=== PATIENT | male | born 1940 | race Caucasian/White ===

== ENCOUNTER 2019-04-16 16:57 | Emergency (ER) | payer MEDICARE, BC ==
[2019-04-16 17:44] VITALS: BP 143/67; PULSE 95
[2019-04-16] MEDS ORDERED: Sodium Chloride 0.9% 10 ML Syringe FLUSH PRN (17:47)
--- NOTE | 2019-04-16 17:52 | EDM.PDOC ---
ED HPI GENERAL MEDICAL PROBLEM - General Chief Complaint: General Stated Complaint: PASSED OUT EARLIER, TIRED CURRENTLY Time Seen by Provider: 04/16/19 17:35 Source of Information: Reports: Patient History Limitations: Reports: No Limitations - History of Present Illness INITIAL COMMENTS - FREE TEXT/NARRATIVE: was at breakfast with his brother this morning when he "passed out", or he "hunched over". According to brother, was only for a minute or so. He then had another episode that was, to a "lesser degree". Benoit states he just got overheated. He remembers feeling a warm feeling; states he remembers everything that happened; He has had a mild cough; more tired. He is currently tired; he denies chest pain, sob, nausea or vomiting; just tired ; chronic diarrhea; on metformin. Blood sugars are running in the 240's. per patient. Onset: Today - Related Data Allergies Allergy/AdvReac Type Severity Reaction Status Date / Time No Known Allergies Allergy Verified 04/16/19 17:30 Home Meds: Home Meds Aspirin [Halfprin] 81 mg PO DAILY 05/26/16 [History] Doxazosin Mesylate [Cardura] 1 tab PO BEDTIME 05/26/16 [History] Esomeprazole [NexIUM] 20 mg PO DAILY 05/26/16 [History] Insuln Asp Prot/Insulin Aspart [NovoLOG Mix 70-30] 26 units SUBCUT BID 05/26/16 [History] Liraglutide [Victoza] 6 units SUBCUT BID 05/26/16 [History] Montelukast [Singulair] 1 tab PO DAILY 05/26/16 [History] metFORMIN [Glucophage] 1,000 mg PO BID 05/26/16 [History] Doxycycline [Vibramycin] 100 mg PO BID 10 Days #20 cap 04/16/19 [Rx] Past Medical History HEENT History: Reports: Impaired Vision Cardiovascular History: Reports: High Cholesterol, Hypertension, SOB on Exertion Respiratory History: Reports: Other (See Below) Other Respiratory History: nodules found on lungs Gastrointestinal History: Reports: None Musculoskeletal History: Reports: Fracture Endocrine/Metabolic History: Reports: Diabetes, Type II, IDDM - Infectious Disease History Infectious Disease History: Reports: Other (See Below) Other Infectious Disease History: patient unaware - Past Surgical History Head Surgeries/Procedures: Reports: None HEENT Surgical History: Reports: None Cardiovascular Surgical History: Reports: None Respiratory Surgical History: Reports: None GI Surgical History: Reports: Appendectomy, Hernia Repair/Other Endocrine Surgical History: Reports: None Musculoskeletal Surgical History: Reports: None Social & Family History - Tobacco Use Smoking Status *Q: Former Smoker Years of Tobacco use: 40 Packs/Tins Daily: 4 Used Tobacco, but Quit: Yes Month/Year Tobacco Last Used: 1998 - Recreational Drug Use Recreational Drug Use: No ED ROS GENERAL - Review of Systems Review Of Systems: See Below Constitutional: Reports: Weakness, Fatigue, Diaphoresis Respiratory: Reports: No Symptoms Cardiovascular: Reports: No Symptoms Endocrine: Reports: No Symptoms GI/Abdominal: Reports: Diarrhea : Reports: No Symptoms Musculoskeletal: Reports: No Symptoms Skin: Reports: No Symptoms Neurological: Reports: Confusion, Syncope (near), Weakness Psychiatric: Reports: Agitation ED EXAM, GENERAL - Physical Exam Exam: See Below Exam Limited By: No Limitations General Appearance: Alert, WD/WN, No Apparent Distress Throat/Mouth: Normal Inspection Head: Atraumatic, Normocephalic Neck: Normal Inspection, Supple, Non-Tender, Full Range of Motion Respiratory/Chest: No Respiratory Distress, No Accessory Muscle Use, Chest Non- Tender, Decreased Breath Sounds Cardiovascular: Regular Rate, Rhythm (NSR to slightly tachy), Other ( pansystolic ejection murmur) GI/Abdominal: Normal Bowel Sounds, Soft, Non-Tender Extremities: Normal Inspection, Normal Range of Motion, Non-Tender Neurological: Alert, Oriented, CN II-XII Intact Psychiatric: Normal Affect, Normal Mood Skin Exam: Warm, Dry, Intact, Normal Color EKG INTERPRETATION EKG Date: 04/16/19 Time: 17:16 Rhythm: NSR Rate (Beats/Min): 88 EKG Interpretation Comments: No acute ST T wave changes. Course - Vital Signs Last Recorded V/S: Last Vital Signs Temp 98.3 F 04/16/19 17:24 Pulse 95 04/16/19 17:29 Resp 16 04/16/19 17:29 BP 143/67 H 04/16/19 17:29 Pulse Ox 98 04/16/19 17:29 - Orders/Labs/Meds Orders: Active Orders 24 hr Category Date Time Status EKG Documentation Completion [RC] ASDIRECTED Care 04/16/19 17:53 Active Peripheral IV Care [RC] . DIRECTED Care 04/16/19 17:47 Active Peripheral IV Insertion Adult [OM.PC] Stat Oth 04/16/19 17:47 Ordered EKG 12 Lead [EK] Routine Ther 04/16/19 17:53 Ordered Labs: Laboratory Tests 04/16/19 04/16/19 Range/Units 17:56 17:56 WBC 4.5 (4.5-11.0) K/uL RBC 3.89 L (4.30-5.90) M/uL Hgb 12.1 (12.0-15.0) g/dL Hct 37.3 L (40.0-54.0) % MCV 96 (80-98) fL MCH 31 (27-31) pg MCHC 32 (32-36) % Plt Count 155 (150-400) K/uL Neut % (Auto) 90 H (36-66) % Lymph % (Auto) 6 L (24-44) % [place] % (Auto) 4 (2-6) % Eos % (Auto) 0 L (2-4) % Baso % (Auto) 0 (0-1) % Sodium 134 L (140-148) mmol/L Potassium 4.6 (3.6-5.2) mmol/L Chloride 99 L (100-108) mmol/L Carbon Dioxide 25 (21-32) mmol/L Anion Gap 14.6 H (5.0-14.0) mmol/L BUN 16 (7-18) mg/dL Creatinine 1.3 (0.8-1.3) mg/dL Est Cr Clr Drug Dosing 42.37 mL/min Estimated GFR (MDRD) 53 L (>60) Glucose 220 H (74-106) mg/dL Calcium 9.0 (8.5-10.1) mg/dL Total Bilirubin 0.5 (0.2-1.0) mg/dL AST 24 (15-37) U/L ALT 26 (12-78) U/L Alkaline Phosphatase 79 (46-116) U/L Troponin I < 0.017 (0.000-0.056) ng/mL Total Protein 7.3 (6.4-8.2) g/dL Albumin 3.7 (3.4-5.0) g/dL Globulin 3.6 H (2.3-3.5) g/dL Albumin/Globulin Ratio 1.0 L (1.2-2.2) Meds: Medications Discontinued Medications Generic Name Dose Route Start Last Admin Trade Name Freq PRN Reason Stop Dose Admin Doxycycline Hyclate 100 mg 04/16/19 19:31 04/16/19 19:40 Vibramycin PO 04/16/19 19:32 100 mg ONETIME ONE Administration Sodium Chloride 1,000 mls @ 500 mls/hr 04/16/19 18:00 04/16/19 18:30 Normal Saline IV 500 mls/hr ASDIRECTED ELODIA Administration Sodium Chloride 10 ml 04/16/19 17:47 04/16/19 18:30 Saline Flush FLUSH 10 ml ASDIRECTED PRN Administration Keep Vein Open Departure - Departure Time of Disposition: 19:33 Disposition: Home, Self-Care 01 Condition: Fair Clinical Impression: Pneumonia - Discharge Information *PRESCRIPTION DRUG MONITORING PROGRAM REVIEWED*: Not Applicable *COPY OF PRESCRIPTION DRUG MONITORING REPORT IN PATIENT CALOS: Not Applicable Prescriptions: Doxycycline [Vibramycin] 100 mg PO BID 10 Days #20 cap Instructions: Community-Acquired Pneumonia, Adult Referrals: Filiberto Agarwal MD [Primary Care Provider] - Forms: ED Department Discharge Additional Instructions: Please follow up with your doctor this week. Rest, Tylenol for pain If symptoms worsen, return to the ER Symptomatic treatment as well. Call with questions. - Problem List & Annotations (1) Pneumonia SNOMED Code(s): 472943463 Code(s): J18.9 - PNEUMONIA, UNSPECIFIED ORGANISM Status: Acute Priority: Medium Qualifiers: Pneumonia type: due to unspecified organism Laterality: right Lung location: middle lobe of lung Qualified Code(s): J18.1 - Lobar pneumonia, unspecified organism - Problem List Review Problem List Initiated/Reviewed/Updated: Yes - My Orders Last 24 Hours: My Active Orders 04/16/19 17:47 Peripheral IV Care [RC] . DIRECTED Peripheral IV Insertion Adult [OM.PC] Stat 04/16/19 17:53 EKG Documentation Completion [RC] ASDIRECTED EKG 12 Lead [EK] Routine - Assessment/Plan Last 24 Hours: My Active Orders 04/16/19 17:47 Peripheral IV Care [RC] . DIRECTED Peripheral IV Insertion Adult [OM.PC] Stat 04/16/19 17:53 EKG Documentation Completion [RC] ASDIRECTED EKG 12 Lead [EK] Routine
[2019-04-16] MEDS ORDERED: Sodium Chloride 0.9% 1,000 ML IV SCH (18:00)
--- NOTE | 2019-04-16 18:57 | CRLCR ---
INDICATION: Near syncopal episode. TECHNIQUE: Portable upright chest. FINDINGS: Monitoring leads have been placed over the chest wall. Lung volumes are diminished. Vague opacity at the right midlung could represent a small focus of pneumonia. Normal heart size and pulmonary vascular pattern with no pleural effusions. Degenerative changes at the shoulder joints and spine Impression: Subtle increased right midlung density possibly representing a focus of pneumonia. Correlate clinically in this regard and consider conventional two-view chest radiograph when clinically feasible. Dictated by Ernesto Woods MD @ Apr 16 2019 6:52PM Signed by Dr. Ernesto Woods @ Apr 16 2019 6:55PM
--- NOTE | 2019-04-16 19:22 | CRLCT ---
INDICATION: Confusion TECHNIQUE: CT head without contrast. COMPARISON: None FINDINGS: CSF spaces: Within normal limits for age. Brain parenchyma: The callahan-white differentiation is normal. No sign of mass, hemorrhage, or midline shift. Diffuse volume loss. Skull base and calvarium: The visualized paranasal sinuses and mastoid air cells demonstrate no acute or significant findings. The visualized orbits are grossly unremarkable. No skull fractures. IMPRESSION: No gross intracranial abnormalities. Diffuse volume loss. Dictated by Tomas Jaimes MD @ 04/16/2019 7:20:32 PM Please note that all CT scans at this facility use dose modulation, iterative reconstruction, and/or weight-based dosing when appropriate to reduce radiation dose to as low as reasonably achievable. Dictated by: Tomas Jaimes MD @ 04/16/2019 19:20:35 (Electronically Signed)
[2019-04-16] MEDS ORDERED: Doxycycline 100 MG Cap PO ONE (19:31)
== END 2019-04-16 19:52 | disposition home or self-care (01) ==
LOC: JP.ED 16:57
DX: J18.9 Pneumonia, unspecified organism (principal); E78.00 Pure hypercholesterolemia, unspecified; I10 Essential (primary) hypertension; E11.9 Type 2 diabetes mellitus without complications; Z79.82 Long term (current) use of aspirin; Z79.899 Other long term (current) drug therapy; Z79.4 Long term (current) use of insulin; Z87.891 Personal history of nicotine dependence
CPT/HCPCS: 36415; 70450; 71045; 80053; 84484; 85025; 93005; 96360; 99284; A9270; J7030; 93010

== ENCOUNTER 2020-06-18 14:59 | Emergency (ER) | payer MEDICARE, BC ==
[2020-06-18] MEDS ORDERED: Sodium Chloride 0.9% 1,000 ML IV ONE (15:07)
--- NOTE | 2020-06-18 16:02 | EDM.PDOC ---
ED HPI GENERAL MEDICAL PROBLEM - General Chief Complaint: Syncope Stated Complaint: MEDICAL [facility]IA [facility] Time Seen by Provider: 06/18/20 15:00 - History of Present Illness INITIAL COMMENTS - FREE TEXT/NARRATIVE: Presents emergency department after he says he felt lightheaded and thought he better sit down and subsequently he fell back from a seated position and hit the back of his head and has a small abrasion on his occipital area. Apparently he was out for about 30 seconds and then came to and he says he has been working outside in the heat and hardly drinking any fluid and he thinks he just passed out. He recently had a similar episode and he says he was just fine after that. Patient currently denies any headache or neck pain or chest pain or shortness of breath. He has no history of tachyarrhythmias that he is aware of and when he presents to the emergency department he is able to get off the cot and get himself undressed and go to the bathroom. - Related Data Allergies Allergy/AdvReac Type Severity Reaction Status Date / Time No Known Allergies Allergy Verified 06/18/20 15:11 Home Meds: Home Meds Aspirin [Halfprin] 81 mg PO DAILY 05/26/16 [History] Doxazosin Mesylate [Cardura] 1 tab PO BEDTIME 05/26/16 [History] Esomeprazole [NexIUM] 20 mg PO DAILY 05/26/16 [History] Insuln Asp Prot/Insulin Aspart [NovoLOG Mix 70-30] 26 units SUBCUT BID 05/26/16 [History] Liraglutide [Victoza] 6 units SUBCUT BID 05/26/16 [History] Montelukast [Singulair] 1 tab PO DAILY 05/26/16 [History] metFORMIN [Glucophage] 1,000 mg PO BID 05/26/16 [History] Past Medical History HEENT History: Reports: Impaired Vision Cardiovascular History: Reports: High Cholesterol, Hypertension, SOB on Exertion Respiratory History: Reports: Other (See Below) Other Respiratory History: nodules found on lungs Gastrointestinal History: Reports: None Musculoskeletal History: Reports: Fracture Endocrine/Metabolic History: Reports: Diabetes, Type II, IDDM - Infectious Disease History Infectious Disease History: Reports: Other (See Below) Other Infectious Disease History: patient unaware - Past Surgical History Head Surgeries/Procedures: Reports: None HEENT Surgical History: Reports: None Cardiovascular Surgical History: Reports: None Respiratory Surgical History: Reports: None GI Surgical History: Reports: Appendectomy, Hernia Repair/Other Endocrine Surgical History: Reports: None Musculoskeletal Surgical History: Reports: None Social & Family History - Tobacco Use Smoking Status *Q: Former Smoker Used Tobacco, but Quit: Yes Month/Year Tobacco Last Used: 12 years ago - Caffeine Use Caffeine Use: Reports: Coffee - Recreational Drug Use Recreational Drug Use: No ED ROS GENERAL - Review of Systems Review Of Systems: Comprehensive ROS is negative, except as noted in HPI. ED EXAM, GENERAL - Physical Exam Exam: See Below Exam Limited By: No Limitations General Appearance: Alert Nose: Normal Inspection Head: Other (Baseball sized abrasion to the occipital area, no obvious lacerations, no bruising or crepitus no C-spine tenderness) Respiratory/Chest: No Respiratory Distress Cardiovascular: Normal Peripheral Pulses, Regular Rate, Rhythm GI/Abdominal: Normal Bowel Sounds Back Exam: Normal Inspection Extremities: Normal Inspection Neurological: Alert, Oriented, CN II-XII Intact Course - Vital Signs Text/Narrative:: Patient did well here in the emergency department and we cleaned his abrasion and we recommended admission to the hospital however he is refusing, he sent out with instructions for syncope and told to increase his fluids and return for any new or worsening symptoms. His EKG has nonspecific ST abnormalities but I do not feel is an acutely and his head CT shows no signs of stroke or injury Last Recorded V/S: Last Vital Signs Temp 96.7 F L 06/18/20 15:16 Pulse 77 06/18/20 16:03 Resp 16 06/18/20 15:16 BP 102/66 06/18/20 16:03 Pulse Ox 98 06/18/20 16:03 - Orders/Labs/Meds Orders: Active Orders 24 hr Category Date Time Status EKG Documentation Completion [RC] ASDIRECTED Care 06/18/20 15:06 Active EKG 12 Lead [EK] Urgent Ther 06/18/20 15:06 Ordered Labs: Laboratory Tests 06/18/20 06/18/20 06/18/20 Range/Units 15:18 15:18 15:18 WBC 4.6 (4.5-11.0) K/uL RBC 3.52 L (4.30-5.90) M/uL Hgb 11.4 L (12.0-15.0) g/dL Hct 34.1 L (40.0-54.0) % MCV 97 (80-98) fL MCH 32 H (27-31) pg MCHC 33 (32-36) % Plt Count 178 (150-400) K/uL Neut % (Auto) 74 H (36-66) % Lymph % (Auto) 17 L (24-44) % [place] % (Auto) 7 H (2-6) % Eos % (Auto) 2 (2-4) % Baso % (Auto) 1 (0-1) % Sodium 138 L (140-148) mmol/L Potassium 4.0 (3.6-5.2) mmol/L Chloride 103 (100-108) mmol/L Carbon Dioxide 27 (21-32) mmol/L Anion Gap 12.0 (5.0-14.0) mmol/L BUN 18 (7-18) mg/dL Creatinine 1.7 H (0.8-1.3) mg/dL Est Cr Clr Drug Dosing 31.31 mL/min Estimated GFR (MDRD) 39 L (>60) Glucose 259 H (74-106) mg/dL Lactic Acid 1.4 (0.4-2.0) mmol/L Calcium 8.6 (8.5-10.1) mg/dL Meds: Medications Discontinued Medications Generic Name Dose Route Start Last Admin Trade Name Alanq PRN Reason Stop Dose Admin Sodium Chloride 1,000 mls @ 1,000 mls/hr 06/18/20 15:07 06/18/20 15:26 Normal Saline IV 06/18/20 16:06 1,000 mls/hr .BOLUS ONE Administration Departure - Departure Time of Disposition: 16:47 Disposition: Home, Self-Care 01 Condition: Fair Clinical Impression: Syncope - Discharge Information Instructions: Near-Syncope, Dehydration, Adult, [id number], Dehydration, Elderly, [id number], Syncope, [id number] Referrals: PCP,None [Primary Care Provider] - Forms: ED Department Discharge Additional Instructions: We have discussed that we recommend admission to the hospital for syncope today and you have refused this. You are welcome back in the emergency department anytime with any symptoms he may have but should return for any new or worsening symptoms and understands that by not undertaking admission to the hospital you could risk permanent disability or from arrhythmia. Sepsis Event Note (ED) - Evaluation Sepsis Screening Result: No Definite Risk - Focused Exam Vital Signs: Vital Signs Temp Pulse Resp BP Pulse Ox 06/18/20 16:03 77 102/66 98 06/18/20 15:16 96.7 F L 90 16 151/75 H 96 06/18/20 15:12 96.7 F L 90 16 151/75 H 96 - My Orders Last 24 Hours: My Active Orders 06/18/20 15:06 EKG Documentation Completion [RC] ASDIRECTED EKG 12 Lead [EK] Urgent - Assessment/Plan Last 24 Hours: My Active Orders 06/18/20 15:06 EKG Documentation Completion [RC] ASDIRECTED EKG 12 Lead [EK] Urgent
--- NOTE | 2020-06-18 16:07 | CRLCT ---
INDICATION: syncope with head trauma, fall earlier today CT HEAD WITHOUT CONTRAST TECHNIQUE: Multiple axial CT images were performed through the head without intravenous contrast administration. COMPARISON: 04/16/[address] FINDINGS: No acute intracranial hemorrhage is identified. No extra-axial collections are evident and there is no mass effect or midline shift. There is mild diffuse age-related brain atrophy. Ventricular size and configuration are within normal limits for the patient`s age. Stanley-white differentiation is within normal limits. There is stable mild patchy hypodensity in the periventricular white matter, a nonspecific finding which most likely reflects chronic small vessel ischemic change. Intracranial atherosclerotic vascular calcifications are noted. Osseous structures are within normal limits and no fractures are seen. Included portions of the paranasal sinuses and mastoid air cells are normally aerated. IMPRESSION: 1. No acute intracranial abnormality identified. 2. Mild age-related brain atrophy, white matter hypodensity consistent with chronic small vessel ischemic change, and intracranial atherosclerotic vascular calcifications. SABAS SAMUEL MD [facility] Dictated by: Raul Samuel MD @ 06/18/2020 16:07:05 (Electronically Signed)
[2020-06-18 17:00] VITALS: BP 124/67; PULSE 75
== END 2020-06-18 17:45 | disposition home or self-care (01) ==
LOC: JP.ED 14:59
DX: R55 Syncope and collapse (principal); E11.9 Type 2 diabetes mellitus without complications; I10 Essential (primary) hypertension; Z79.82 Long term (current) use of aspirin; Z87.891 Personal history of nicotine dependence; Z79.4 Long term (current) use of insulin; Z79.899 Other long term (current) drug therapy
CPT/HCPCS: 36415; 70450; 80048; 83605; 85025; 93005; 96360; 99285; J7030

== ENCOUNTER 2020-07-25 18:14 | Emergency (ER) | payer MEDICARE, BC ==
[2020-07-25] MEDS ORDERED: Sodium Chloride 0.9% 10 ML Syringe FLUSH PRN (18:35)
[2020-07-25] MEDS ORDERED: Acetaminophen 325 MG Tab PO PRN (18:35)
--- NOTE | 2020-07-25 19:12 | EDM.PDOC ---
ED HPI GENERAL MEDICAL PROBLEM - General Chief Complaint: General Stated Complaint: PASSED OUT THIS MORNING, THROWING UP AND CHILLS Time Seen by Provider: 07/25/20 18:34 Source of Information: Reports: Patient, Family () History Limitations: Reports: No Limitations - History of Present Illness INITIAL COMMENTS - FREE TEXT/NARRATIVE: Benoit is an 79-year-old male presenting to the ED for evaluation of continued illness including cough, shortness of breath, nausea and vomiting, but body aches and headache for the last week. In addition, he had 2 syncopal episodes today. He was seen for syncopal episodes by Dr. Wilson last month with a negative work-up. He presents with symptoms consistent with COVID-19 so Covid measures were instituted. Onset: Gradual Associated Symptoms: Reports: Cough, Headaches, Malaise, Nausea/Vomiting, Shortness of Breath, Syncope, Weakness - Related Data Allergies Allergy/AdvReac Type Severity Reaction Status Date / Time No Known Allergies Allergy Verified 07/25/20 18:26 Home Meds: Home Meds Aspirin [Halfprin] 81 mg PO DAILY 05/26/16 [History] Doxazosin Mesylate [Cardura] 1 tab PO BEDTIME 05/26/16 [History] Esomeprazole [NexIUM] 20 mg PO DAILY 05/26/16 [History] Insuln Asp Prot/Insulin Aspart [NovoLOG Mix 70-30] 26 units SUBCUT BID 05/26/16 [History] Liraglutide [Victoza] 6 units SUBCUT BID 05/26/16 [History] Montelukast [Singulair] 1 tab PO DAILY 05/26/16 [History] metFORMIN [Glucophage] 1,000 mg PO BID 05/26/16 [History] Past Medical History HEENT History: Reports: Impaired Vision Cardiovascular History: Reports: High Cholesterol, Hypertension, SOB on Exertion Respiratory History: Reports: Other (See Below) Other Respiratory History: nodules found on lungs Gastrointestinal History: Reports: None Musculoskeletal History: Reports: Fracture Endocrine/Metabolic History: Reports: Diabetes, Type II, IDDM - Infectious Disease History Infectious Disease History: Reports: Other (See Below) Other Infectious Disease History: patient unaware - Past Surgical History Head Surgeries/Procedures: Reports: None HEENT Surgical History: Reports: None Cardiovascular Surgical History: Reports: None Respiratory Surgical History: Reports: None GI Surgical History: Reports: Appendectomy, Hernia Repair/Other Endocrine Surgical History: Reports: None Musculoskeletal Surgical History: Reports: None Social & Family History - Tobacco Use Tobacco Use Status *Q: Never Tobacco User - Caffeine Use Caffeine Use: Reports: Coffee ED ROS GENERAL - Review of Systems Review Of Systems: See Below Constitutional: Reports: Malaise, Weakness, Fatigue HEENT: Reports: No Symptoms Respiratory: Reports: Shortness of Breath, Cough Cardiovascular: Reports: Dyspnea on Exertion, Syncope Endocrine: Reports: Fatigue GI/Abdominal: Reports: Nausea, Vomiting Musculoskeletal: Reports: No Symptoms Skin: Reports: No Symptoms Neurological: Reports: Headache, Syncope Psychiatric: Reports: No Symptoms Hematologic/Lymphatic: Reports: No Symptoms Immunologic: Reports: No Symptoms ED EXAM, GENERAL - Physical Exam Exam: See Below Exam Limited By: No Limitations General Appearance: Alert, Anxious, Mild Distress Eye Exam: Bilateral Eye: EOMI, PERRL Nose: Normal Inspection, Normal Mucosa, No Blood Throat/Mouth: Normal Inspection, Normal Lips, Normal Teeth, Normal Gums, Normal Oropharynx, Normal Voice, No Airway Compromise Head: Atraumatic, Normocephalic Neck: Normal Inspection, Supple, Non-Tender, Full Range of Motion Respiratory/Chest: No Respiratory Distress, No Accessory Muscle Use, Chest Non- Tender, Rales (Bibasilar Rales, greater on the right than on the left), Rhonchi (Right-sided) Cardiovascular: Regular Rate, Rhythm, Systolic Murmur (3/6 systolic ejection murmur heard in the right upper sternal border and 4/6 systolic ejection murmur heard in the apex radiating up into the left upper chest.) Peripheral Pulses: 2+: Radial (L) (Parvus and tardus), Radial (R) (Parvus and tardus), Posterior Tibial (L), Posterior Tibial (R) GI/Abdominal: Normal Bowel Sounds, Soft, Non-Tender, No Organomegaly, No Distention, No Abnormal Bruit Extremities: Normal Inspection, Normal Range of Motion, Non-Tender, No Pedal Edema, Normal Capillary Refill Neurological: Alert, Oriented, Normal Cognition, No Motor/Sensory Deficits Psychiatric: Normal Affect, Normal Mood Skin Exam: Warm, Dry, Intact, Normal Color, No Rash Lymphatic: No Adenopathy #1 Interpretation EKG Date: 10/16/20 Time: 19:37 Rhythm: NSR Rate (Beats/Min): 116 [place]: Normal P-Wave: Present QRS: Normal ST-T: Other (Repolarization abnormality) QT: Normal Course - Vital Signs Last Recorded V/S: Last Vital Signs Temp 36.9 C 07/25/20 21:00 Pulse 105 H 07/25/20 21:00 Resp 28 H 07/25/20 21:00 BP 113/62 07/25/20 21:00 Pulse Ox 100 07/25/20 21:00 - Orders/Labs/Meds Orders: Active Orders 24 hr Category Date Time Status EKG Documentation Completion [RC] ASDIRECTED Care 07/25/20 19:15 Active Peripheral IV Care [RC] . DIRECTED Care 07/25/20 18:37 Active Acetaminophen [TylenoL] Med 07/25/20 18:35 Active 650 mg PO Q4H PRN Heparin Sodium/D5W [Heparin 25,000 Units in D5W 500 ML] Med 07/25/20 20:15 Active 25,000 units in 500 ml IV TITRATE Sodium Chloride 0.9% [Normal Saline] 1,000 ml Med 07/25/20 20:30 Active IV ASDIRECTED Sodium Chloride 0.9% [Saline Flush] Med 07/25/20 18:35 Active 10 ml FLUSH ASDIRECTED PRN Isolation [COMM] Stat Oth 07/25/20 18:35 Ordered Peripheral IV Insertion Adult [OM.PC] Routine Oth 07/25/20 18:35 Ordered EKG 12 Lead [EK] Routine Ther 07/25/20 19:15 Ordered Medication Orders Acetaminophen (Tylenol) 650 mg PO Q4H PRN PRN Reason: Fever Greater Than 101 Last Admin: 07/25/20 19:21 Dose: 650 mg Documented by: ROLAND Heparin Sodium/Dextrose (Heparin 25,000 Units In D5w 500 Ml) 25,000 units in 500 mls @ 18.398 mls/hr IV TITRATE ELODIA; Protocol Last Admin: 07/25/20 20:24 Dose: 12 units/kg/hr, 18.398 mls/hr Documented by: ROLAND Cosigned by: KRUNAL Sodium Chloride (Normal Saline) 1,000 mls @ 125 mls/hr IV ASDIRECTED ELODIA Last Admin: 07/25/20 20:42 Dose: 125 mls/hr Documented by: SITZMEL Sodium Chloride (Saline Flush) 10 ml FLUSH ASDIRECTED PRN PRN Reason: Keep Vein Open Last Admin: 07/25/20 19:22 Dose: 10 ml Documented by: ROLAND Labs: Laboratory Tests 07/25/20 07/25/20 07/25/20 Range/Units 18:35 18:35 18:35 WBC 9.8 (4.5-11.0) K/uL RBC 3.68 L (4.30-5.90) M/uL Hgb 12.0 (12.0-15.0) g/dL Hct 35.5 L (40.0-54.0) % MCV 97 (80-98) fL MCH 33 H (27-31) pg MCHC 34 (32-36) % Plt Count 214 (150-400) K/uL Neut % (Auto) 93 H (36-66) % Lymph % (Auto) 3 L (24-44) % [place] % (Auto) 4 (2-6) % Eos % (Auto) 0 L (2-4) % Baso % (Auto) 0 (0-1) % PT (9.5-12.0) sec INR (0.80-1.20) APTT 24.1 L (27.0-36.0) sec D-Dimer, Quantitative 898 H (0.0-400.0) ng/mL Puncture Site ABG pH (7.350-7.450) ABG pCO2 (35.0-42.0) mmHg ABG pO2 (75.0-100.0) mmHg ABG HCO3 (22.0-26.0) mmol/L ABG Total CO2 (23.0-27.0) mmol/L ABG O2 Saturation (95.0-98.0) % ABG O2 Content (15.0-23.0) %vol ABG Base Excess mm/L ABG Hemoglobin (13.5-18.0) g/dL ABG Oxyhemoglobin % ABG Carboxyhemoglobin (0.0-1.6) % ABG Methemoglobin % Matthew Test O2 Delivery Device Oxygen Flow Rate L Sodium (140-148) mmol/L Potassium (3.6-5.2) mmol/L Chloride (100-108) mmol/L Carbon Dioxide (21-32) mmol/L Anion Gap (5.0-14.0) mmol/L BUN (7-18) mg/dL Creatinine (0.8-1.3) mg/dL Est Cr Clr Drug Dosing mL/min Estimated GFR (MDRD) (>60) Glucose (74-106) mg/dL Lactic Acid (0.4-2.0) mmol/L Calcium (8.5-10.1) mg/dL Total Bilirubin (0.2-1.0) mg/dL Direct Bilirubin (0.0-0.2) mg/dL Indirect Bilirubin AST (15-37) U/L ALT (12-78) U/L Alkaline Phosphatase (46-116) U/L Lactate Dehydrogenase (85-227) U/L Creatine Kinase (39-308) U/L Troponin I (0.000-0.056) ng/mL C-Reactive Protein (0.0-0.3) mg/dL NT-Pro-B Natriuret Pep (5-450) pg/mL Total Protein (6.4-8.2) g/dL Albumin (3.4-5.0) g/dL Globulin (2.3-3.5) g/dL Albumin/Globulin Ratio (1.2-2.2) Procalcitonin ng/mL SARS-CoV-2 RNA (BLANCA) (NEGATIVE) 07/25/20 07/25/20 07/25/20 Range/Units 18:35 18:35 18:35 WBC (4.5-11.0) K/uL RBC (4.30-5.90) M/uL Hgb (12.0-15.0) g/dL Hct (40.0-54.0) % MCV (80-98) fL MCH (27-31) pg MCHC (32-36) % Plt Count (150-400) K/uL Neut % (Auto) (36-66) % Lymph % (Auto) (24-44) % [place] % (Auto) (2-6) % Eos % (Auto) (2-4) % Baso % (Auto) (0-1) % PT (9.5-12.0) sec INR (0.80-1.20) APTT (27.0-36.0) sec D-Dimer, Quantitative (0.0-400.0) ng/mL Puncture Site Rt.radial ABG pH 7.449 (7.350-7.450) ABG pCO2 32.9 L (35.0-42.0) mmHg ABG pO2 35.4 L* (75.0-100.0) mmHg ABG HCO3 22.5 (22.0-26.0) mmol/L ABG Total CO2 20.3 L (23.0-27.0) mmol/L ABG O2 Saturation 71.0 L (95.0-98.0) % ABG O2 Content 11.6 L (15.0-23.0) %vol ABG Base Excess -0.5 mm/L ABG Hemoglobin 11.9 L (13.5-18.0) g/dL ABG Oxyhemoglobin 69.2 % ABG Carboxyhemoglobin 1.5 (0.0-1.6) % ABG Methemoglobin 1.1 % Matthew Test Passed O2 Delivery Device Room air Oxygen Flow Rate L Sodium 133 L (140-148) mmol/L Potassium 4.5 (3.6-5.2) mmol/L Chloride 99 L (100-108) mmol/L Carbon Dioxide 25 (21-32) mmol/L Anion Gap 13.5 (5.0-14.0) mmol/L BUN 17 (7-18) mg/dL Creatinine 1.5 H (0.8-1.3) mg/dL Est Cr Clr Drug Dosing 34.85 mL/min Estimated GFR (MDRD) 45 L (>60) Glucose 231 H (74-106) mg/dL Lactic Acid 2.8 H (0.4-2.0) mmol/L Calcium 8.7 (8.5-10.1) mg/dL Total Bilirubin 0.8 D (0.2-1.0) mg/dL Direct Bilirubin 0.27 H (0.0-0.2) mg/dL Indirect Bilirubin 0.53 AST 44 H D (15-37) U/L ALT 32 (12-78) U/L Alkaline Phosphatase 80 (46-116) U/L Lactate Dehydrogenase 253 H (85-227) U/L Creatine Kinase 463 H (39-308) U/L Troponin I (0.000-0.056) ng/mL C-Reactive Protein 0.29 (0.0-0.3) mg/dL NT-Pro-B Natriuret Pep (5-450) pg/mL Total Protein 7.0 (6.4-8.2) g/dL Albumin 3.7 (3.4-5.0) g/dL Globulin 3.3 (2.3-3.5) g/dL Albumin/Globulin Ratio 1.1 L (1.2-2.2) Procalcitonin ng/mL SARS-CoV-2 RNA (BLANCA) (NEGATIVE) 07/25/20 07/25/20 07/25/20 Range/Units 18:35 18:36 19:15 WBC (4.5-11.0) K/uL RBC (4.30-5.90) M/uL Hgb (12.0-15.0) g/dL Hct (40.0-54.0) % MCV (80-98) fL MCH (27-31) pg MCHC (32-36) % Plt Count (150-400) K/uL Neut % (Auto) (36-66) % Lymph % (Auto) (24-44) % [place] % (Auto) (2-6) % Eos % (Auto) (2-4) % Baso % (Auto) (0-1) % PT 11.5 (9.5-12.0) sec INR 1.06 (0.80-1.20) APTT (27.0-36.0) sec D-Dimer, Quantitative (0.0-400.0) ng/mL Puncture Site ABG pH (7.350-7.450) ABG pCO2 (35.0-42.0) mmHg ABG pO2 (75.0-100.0) mmHg ABG HCO3 (22.0-26.0) mmol/L ABG Total CO2 (23.0-27.0) mmol/L ABG O2 Saturation (95.0-98.0) % ABG O2 Content (15.0-23.0) %vol ABG Base Excess mm/L ABG Hemoglobin (13.5-18.0) g/dL ABG Oxyhemoglobin % ABG Carboxyhemoglobin (0.0-1.6) % ABG Methemoglobin % Matthew Test O2 Delivery Device Oxygen Flow Rate L Sodium (140-148) mmol/L Potassium (3.6-5.2) mmol/L Chloride (100-108) mmol/L Carbon Dioxide (21-32) mmol/L Anion Gap (5.0-14.0) mmol/L BUN (7-18) mg/dL Creatinine (0.8-1.3) mg/dL Est Cr Clr Drug Dosing mL/min Estimated GFR (MDRD) (>60) Glucose (74-106) mg/dL Lactic Acid (0.4-2.0) mmol/L Calcium (8.5-10.1) mg/dL Total Bilirubin (0.2-1.0) mg/dL Direct Bilirubin (0.0-0.2) mg/dL Indirect Bilirubin AST (15-37) U/L ALT (12-78) U/L Alkaline Phosphatase (46-116) U/L Lactate Dehydrogenase (85-227) U/L Creatine Kinase (39-308) U/L Troponin I 7.353 H* (0.000-0.056) ng/mL C-Reactive Protein (0.0-0.3) mg/dL NT-Pro-B Natriuret Pep 2549 H (5-450) pg/mL Total Protein (6.4-8.2) g/dL Albumin (3.4-5.0) g/dL Globulin (2.3-3.5) g/dL Albumin/Globulin Ratio (1.2-2.2) Procalcitonin < 0.05 ng/mL SARS-CoV-2 RNA (BLANCA) (NEGATIVE) 07/25/20 07/25/20 Range/Units 19:57 20:30 WBC (4.5-11.0) K/uL RBC (4.30-5.90) M/uL Hgb (12.0-15.0) g/dL Hct (40.0-54.0) % MCV (80-98) fL MCH (27-31) pg MCHC (32-36) % Plt Count (150-400) K/uL Neut % (Auto) (36-66) % Lymph % (Auto) (24-44) % [place] % (Auto) (2-6) % Eos % (Auto) (2-4) % Baso % (Auto) (0-1) % PT (9.5-12.0) sec INR (0.80-1.20) APTT (27.0-36.0) sec D-Dimer, Quantitative (0.0-400.0) ng/mL Puncture Site Right ABG pH 7.444 (7.350-7.450) ABG pCO2 33.3 L (35.0-42.0) mmHg ABG pO2 54.7 L (75.0-100.0) mmHg ABG HCO3 22.5 (22.0-26.0) mmol/L ABG Total CO2 20.3 L (23.0-27.0) mmol/L ABG O2 Saturation 89.9 L (95.0-98.0) % ABG O2 Content 14.2 L (15.0-23.0) %vol ABG Base Excess -0.6 mm/L ABG Hemoglobin 11.6 L (13.5-18.0) g/dL ABG Oxyhemoglobin 87.3 % ABG Carboxyhemoglobin 1.7 H (0.0-1.6) % ABG Methemoglobin 1.2 % Matthew Test Passed O2 Delivery Device Nasal cannula Oxygen Flow Rate 3.0 L Sodium (140-148) mmol/L Potassium (3.6-5.2) mmol/L Chloride (100-108) mmol/L Carbon Dioxide (21-32) mmol/L Anion Gap (5.0-14.0) mmol/L BUN (7-18) mg/dL Creatinine (0.8-1.3) mg/dL Est Cr Clr Drug Dosing mL/min Estimated GFR (MDRD) (>60) Glucose (74-106) mg/dL Lactic Acid (0.4-2.0) mmol/L Calcium (8.5-10.1) mg/dL Total Bilirubin (0.2-1.0) mg/dL Direct Bilirubin (0.0-0.2) mg/dL Indirect Bilirubin AST (15-37) U/L ALT (12-78) U/L Alkaline Phosphatase (46-116) U/L Lactate Dehydrogenase (85-227) U/L Creatine Kinase (39-308) U/L Troponin I (0.000-0.056) ng/mL C-Reactive Protein (0.0-0.3) mg/dL NT-Pro-B Natriuret Pep (5-450) pg/mL Total Protein (6.4-8.2) g/dL Albumin (3.4-5.0) g/dL Globulin (2.3-3.5) g/dL Albumin/Globulin Ratio (1.2-2.2) Procalcitonin ng/mL SARS-CoV-2 RNA (BLANCA) Negative (NEGATIVE) Meds: Medications Generic Name Dose Route Start Last Admin Trade Name Shelby PRN Reason Stop Dose Admin Acetaminophen 650 mg 07/25/20 18:35 07/25/20 19:21 Tylenol PO 650 mg Q4H PRN Administration Fever Greater Than 101 Heparin Sodium/Dextrose 25,000 units in 500 mls @ 18.398 mls/hr 07/25/20 20:15 07/25/20 20:24 Heparin 25,000 Units In D5w 500 Ml IV 12 units/kg/hr TITRATE ELODIA 18.398 mls/hr Administration Protocol 12 UNITS/KG/HR Sodium Chloride 1,000 mls @ 125 mls/hr 07/25/20 20:30 07/25/20 20:42 Normal Saline IV 125 mls/hr ASDIRECTED ELODIA Administration Sodium Chloride 10 ml 07/25/20 18:35 07/25/20 19:22 Saline Flush FLUSH 10 ml ASDIRECTED PRN Administration Keep Vein Open Discontinued Medications Generic Name Dose Route Start Last Admin Trade Name Shelby PRN Reason Stop Dose Admin Aspirin 324 mg 07/25/20 20:40 07/25/20 20:49 Aspirin PO 07/25/20 20:41 324 mg ONETIME ONE Administration Aspirin Confirm 07/25/20 20:49 07/25/20 20:51 Aspirin Administered 07/25/20 20:50 Not Given Dose 81 mg .ROUTE .STK-MED ONE Dexamethasone 6 mg 07/25/20 20:13 07/25/20 20:18 Dexamethasone IVPUSH 07/25/20 20:14 6 mg ONETIME ONE Administration Ceftriaxone Sodium 2 gm/ 50 mls @ 100 mls/hr 07/25/20 20:20 07/25/20 20:32 Sodium Chloride IV 07/25/20 20:49 100 mls/hr ONETIME ONE Administration - Radiology Interpretation Free Text/Narrative:: Chest one-view portable bilateral interstitial and alveolar opacities, greater on the right than the left suggestive of significant pulmonary edema. - Re-Assessments/Exams Free Text/Narrative Re-Assessment/Exam: 07/25/20 20:10 patient was started on heparin per NSTEMI protocol. He received dexamethasone 6 mg IV push. He also received Rocephin 2 g IV. This is to cover for potential pneumonia as he has anirudh out his right lung. He most likely has acute on chronic congestive heart failure due to significant aortic stenosis and mitral regurgitation causing backup of fluid into the right lung. His BNP is elevated at 2549. Concerning is his troponin is 7.35 and his BNP being elevated makes me worried that this is an NSTEMI. Especially since the patient has had nausea and vomiting. In addition, I am concerned because all of the surrogate Covid markers seem to be elevated including D-dimer at 898, LDH, procalcitonin, lactate at 2.8, and CRP. 07/25/20 20:25 I discussed the case with Dr. Morales, ER doctor at [facility] who accepts the patient in transfer. He recommended the patient be placed on a nonrebreather at 10 L to supplement his oxygenation. 07/25/20 20:33 patient started on nonrebreather facemask at 10 L to help supplement his oxygen. 07/25/20 20:40 I discussed the case with Dr. Barrios, director of strategic sourcing from [facility] concerning whether the patient needed to go to the ICU versus the regular Covid floor versus the regular floor. We will hold off on arranging transport until we get the rapid Covid test back so we can better identify where the patient should appropriately be placed. 07/25/20 21:27 patient's Covid test came back negative. I went and talked with the patient and reassured him that this all appears to be coming from the heart. He still needs to go to [facility] for further work-up of this. Patient is in agreement with this plan. His will be able to go to [place] to visit him as he is Covid negative. Departure - Departure Time of Disposition: 21:26 Disposition: DC/Tfer to Other Condition: Serious Clinical Impression: Aortic stenosis, severe, Elevated troponin I level, Pulmonary edema cardiac cause, Hypoxia, Recurrent syncope, Elevated lactic acid level Mitral regurgitation Qualifiers: Cardiac valve disease etiology: nonrheumatic Qualified Code(s): I34.0 - Nonrheumatic mitral (valve) insufficiency - Discharge Information Referrals: PCP,None [Primary Care Provider] - Forms: ED Department Discharge Sepsis Event Note (ED) - Evaluation Sepsis Screening Result: Possible Sepsis Risk Possible Source of Sepsis: Pulmonary - Focused Exam Vital Signs: Vital Signs Temp Temp Temp Pulse Resp BP Pulse Ox 07/25/20 21:00 36.9 C 105 H 28 H 113/62 100 07/25/20 20:52 2.8 C L 112 H 25 H 115/64 99 07/25/20 20:04 118 H 29 H 107/59 L 91 L 07/25/20 19:51 37.2 C 07/25/20 19:47 38.4 C H 108 H 28 H 103/53 L 97 07/25/20 19:21 38.5 C H 07/25/20 18:41 117 H 27 H 146/79 H 94 L 07/25/20 18:36 37.5 C 127 H 18 159/89 H 85 L 07/25/20 18:23 37.5 C 127 H 18 159/89 H 85 L Heart Sounds: Murmur, Systolic (Grade 3/6 systolic ejection murmur in the right upper sternal border, grade 3 out of 6 holosystolic murmur heard in the apex of the heart radiating up into the right anterior chest.) Capillary Refill, Detail: Less than/Equal to (</=) 2 Seconds Peripheral Pulse Location: Radial (Significant parvus and tardus) Skin Exam (Focused Sepsis): Normal Turgor Date Exam was Performed: 07/25/20 Time Exam was Performed: 18:35 - My Orders Last 24 Hours: My Active Orders 07/25/20 18:35 Acetaminophen [TylenoL] 650 mg PO Q4H PRN Sodium Chloride 0.9% [Saline Flush] 10 ml FLUSH ASDIRECTED PRN Isolation [COMM] Stat Peripheral IV Insertion Adult [OM.PC] Routine 07/25/20 18:37 Peripheral IV Care [RC] . DIRECTED 07/25/20 19:15 EKG Documentation Completion [RC] ASDIRECTED EKG 12 Lead [EK] Routine 07/25/20 20:15 Heparin Sodium/D5W [Heparin 25,000 Units in D5W 500 ML] 25,000 units in 500 ml IV TITRATE 07/25/20 20:30 Sodium Chloride 0.9% [Normal Saline] 1,000 ml IV ASDIRECTED - Assessment/Plan Last 24 Hours: My Active Orders 07/25/20 18:35 Acetaminophen [TylenoL] 650 mg PO Q4H PRN Sodium Chloride 0.9% [Saline Flush] 10 ml FLUSH ASDIRECTED PRN Isolation [COMM] Stat Peripheral IV Insertion Adult [OM.PC] Routine 07/25/20 18:37 Peripheral IV Care [RC] . DIRECTED 07/25/20 19:15 EKG Documentation Completion [RC] ASDIRECTED EKG 12 Lead [EK] Routine 07/25/20 20:15 Heparin Sodium/D5W [Heparin 25,000 Units in D5W 500 ML] 25,000 units in 500 ml IV TITRATE 07/25/20 20:30 Sodium Chloride 0.9% [Normal Saline] 1,000 ml IV ASDIRECTED
[2020-07-25] MEDS ORDERED: Dexamethasone 4 MG/ML SDV IVPUSH ONE (20:13)
[2020-07-25] MEDS ORDERED: Heparin Sodium/D5W 25,000 UNITS/500 ML BAG IV SCH (20:15)
[2020-07-25] MEDS ORDERED: cefTRIAXone 2 GM in Sodium Chloride 0.9% 50 ML IV ONE (20:20)
--- NOTE | 2020-07-25 20:24 | CRLCR ---
Indication: Respiratory failure Technique: Chest 1 view Comparison: Chest x-ray 04/16/2019 Findings/Impression: Cardiovascular and mediastinum: Heart size and vasculature are normal in caliber and appearance. Lungs and pleural space: Bilateral interstitial and alveolar opacities, far greater within the right lung. Distribution is predominately central suggesting asymmetric pulmonary edema. Bones and soft tissues: Surgical clips at the lower neck. Dictated by Garo Larsen MD @ Jul 25 2020 8:22PM Signed by Dr. Garo Larsen @ Jul 25 2020 8:23PM
[2020-07-25] MEDS ORDERED: Sodium Chloride 0.9% 1,000 ML IV SCH (20:30)
[2020-07-25] MEDS ORDERED: Aspirin 81 MG Tab.Chew PO ONE (20:40)
[2020-07-25] MEDS ORDERED: Aspirin 81 MG Tab.Chew ONE (20:49)
[2020-07-25 22:21] VITALS: BP 109/64; PULSE 97
== END 2020-07-25 22:30 | disposition other institution (70) ==
LOC: JP.ED 18:14
DX: I35.2 Nonrheumatic aortic (valve) stenosis with insufficiency (principal); R79.89 Other specified abnormal findings of blood chemistry; J81.1 Chronic pulmonary edema; R09.02 Hypoxemia; R55 Syncope and collapse; R74.02 Elevation of levels of lactic acid dehydrogenase [LDH]; E78.00 Pure hypercholesterolemia, unspecified; I10 Essential (primary) hypertension; E11.9 Type 2 diabetes mellitus without complications; Z79.899 Other long term (current) drug therapy; Z68.27 Body mass index [BMI] 27.0-27.9, adult; Z20.828 Contact with and (suspected) exposure to other viral communicable diseases; Z79.4 Long term (current) use of insulin
CPT/HCPCS: 36415; 36600; 71045; 80048; 80076; 82550; 82803; 83605; 83615; 83880; 84145; 84484; 85025; 85379; 85610; 85730; 86140; 93005; 96365; 96366; 96375; 99285; A9270; J0696; J1100; J1644; J7030; J7050; U0002

== ENCOUNTER 2022-08-27 09:20 | Inpatient (IN) | payer MEDICARE, BC ==
[2022-08-27] MEDS ORDERED: Lactated Ringers 500 ML IV ONE ×2 (09:51→10:28)
[2022-08-27] MEDS ORDERED: Sodium Chloride 0.9% 10 ML Syringe FLUSH PRN (09:51)
[2022-08-27] MEDS ORDERED: Acetaminophen 500 MG Tab PO ONE (10:28)
[2022-08-27 10:38] LABS: ESTIMATED GFR 37 mL/min (>60)
[2022-08-27] MEDS ORDERED: Piperacillin/Tazobactam 4.5 GM in Sodium Chloride 0.9% 50 ML IV ONE (10:41)
[2022-08-27] MEDS ORDERED: Vancomycin 2 GM in Sodium Chloride 0.9% 500 ML IV ONE (10:42)
[2022-08-27] MEDS ORDERED: 50% Dextrose in Water 50 ML Syringe IVPUSH PRN (13:26)
[2022-08-27] MEDS ORDERED: Ondansetron 4 MG Tab.DIS PO PRN (13:26)
[2022-08-27] MEDS ORDERED: Magnesium Hydroxide 400 MG/5 ML Susp 30 ML Cup PO PRN (13:26)
[2022-08-27] MEDS ORDERED: Ondansetron 4 MG/2 ML SDV IV PRN (13:26)
[2022-08-27] MEDS ORDERED: Glucagon,Human Recombinant 1 MG Vial IM PRN (13:26)
[2022-08-27] MEDS ORDERED: Albuterol 0.083% 2.5 MG/3 ML Neb Soln NEB PRN (13:26)
[2022-08-27] MEDS ORDERED: Acetaminophen 325 MG Tab PO PRN (13:26)
[2022-08-27] MEDS: Sodium Chloride 0.9% 1,000 ML IV SCH ×2 (14:33→22:37)
[2022-08-27] MEDS ORDERED: Sodium Chloride 0.9% 1,000 ML IV SCH (15:15)
[2022-08-27] MEDS: Insulin Lispro Protamine/Lispro 75-25 100 Units/ML 10 ML Vial SUBCUT SCH (16:32)
[2022-08-27] MEDS: Insulin Lispro 100 Unit/ML 3 ML KwikPen SUBCUT SCH ×2 (16:33→20:24)
[2022-08-27] MEDS ORDERED: Ketorolac 30 MG/ML SDV IVPUSH ONE (17:00)
[2022-08-27] MEDS: Montelukast 10 MG Tab PO SCH (20:21)
[2022-08-27] MEDS: Lactobacillus Rhamnosus GG (Probiotic) Cap PO SCH (20:21)
[2022-08-27] MEDS: Liraglutide (rDNA Origin) 0.6 MG/0.1 ML 3 ML Pen SUBCUT SCH (20:21)
[2022-08-28] MEDS: Sodium Chloride 0.9% 1,000 ML IV SCH (07:16)
[2022-08-28] MEDS: Pantoprazole 40 MG Tab.CR PO SCH (07:18)
[2022-08-28] MEDS: Insulin Lispro 100 Unit/ML 3 ML KwikPen SUBCUT SCH ×4 (07:19→20:32)
[2022-08-28] MEDS: Insulin Lispro Protamine/Lispro 75-25 100 Units/ML 10 ML Vial SUBCUT SCH ×2 (07:23→16:37)
[2022-08-28] MEDS: Lactobacillus Rhamnosus GG (Probiotic) Cap PO SCH ×2 (08:30→20:35)
[2022-08-28] MEDS: Doxazosin 4 MG Tab PO SCH (08:30)
[2022-08-28] MEDS: Aspirin 81 MG Tab.EC PO SCH (08:30)
[2022-08-28] MEDS: Liraglutide (rDNA Origin) 0.6 MG/0.1 ML 3 ML Pen SUBCUT SCH ×2 (08:30→20:32)
[2022-08-28] MEDS: Montelukast 10 MG Tab PO SCH (20:35)
[2022-08-29 07:28] VITALS: BP 136/62; PULSE 76
[2022-08-29] MEDS: Pantoprazole 40 MG Tab.CR PO SCH (07:29)
[2022-08-29] MEDS: Insulin Lispro 100 Unit/ML 3 ML KwikPen SUBCUT SCH ×2 (07:30→11:21)
[2022-08-29] MEDS: Insulin Lispro Protamine/Lispro 75-25 100 Units/ML 10 ML Vial SUBCUT SCH (07:32)
[2022-08-29] MEDS: Liraglutide (rDNA Origin) 0.6 MG/0.1 ML 3 ML Pen SUBCUT SCH (08:08)
[2022-08-29] MEDS: Doxazosin 4 MG Tab PO SCH (08:08)
[2022-08-29] MEDS: Aspirin 81 MG Tab.EC PO SCH (08:08)
[2022-08-29] MEDS: Lactobacillus Rhamnosus GG (Probiotic) Cap PO SCH (08:08)
[2022-08-29] MEDS ORDERED: Ciprofloxacin 500 MG Tab PO SCH (08:30)
== END 2022-08-29 11:50 | disposition home or self-care (01) | DRG 872 ==
LOC: JP.ED 09:20 → JP.ICU 11:53
PROVIDERS: ADMIT Internal Medicine; ATTEND Internal Medicine
DX: A41.9 Sepsis, unspecified organism (principal); D64.9 Anemia, unspecified; N32.9 Bladder disorder, unspecified; A41.51 Sepsis due to Escherichia coli [E. coli]; N39.0 Urinary tract infection, site not specified; N17.9 Acute kidney failure, unspecified; I25.10 Atherosclerotic heart disease of native coronary artery without angina pectoris; E87.1 Hypo-osmolality and hyponatremia; R41.82 Altered mental status, unspecified; Z66 Do not resuscitate; C67.9 Malignant neoplasm of bladder, unspecified; Z20.822 Contact with and (suspected) exposure to COVID-19; E11.65 Type 2 diabetes mellitus with hyperglycemia; R65.20 Severe sepsis without septic shock; H54.7 Unspecified visual loss; E78.00 Pure hypercholesterolemia, unspecified; I10 Essential (primary) hypertension; Z90.49 Acquired absence of other specified parts of digestive tract; Z87.891 Personal history of nicotine dependence; Z79.4 Long term (current) use of insulin; Z79.82 Long term (current) use of aspirin; Z79.899 Other long term (current) drug therapy; Z98.890 Other specified postprocedural states; E11.51 Type 2 diabetes mellitus with diabetic peripheral angiopathy without gangrene; I35.0 Nonrheumatic aortic (valve) stenosis
CPT/HCPCS: 36415; 71045 ×2; 80053; 81001; 81003; 82009; 82803; 83605; 83690; 84145; 85025; 85610; 85730; 86140; 86850; 86900; 86901; 87040 ×2; 87086; 87088; 87186 ×2; A9270; J2543; J3490; J7120 ×2; U0002; 51701; 80048; 82947; 85027; 96361; 96365; 96367; 99285-25; J0713; J1815; J1885; J3370; J7030; J7040